=== PATIENT | female | born 1970 | race African-American/Black ===

== ENCOUNTER 2017-03-05 04:09 | Emergency (ER) | payer SELFPAY ==
[~2017-03-05] VITALS: Ht 144.8 cm; Wt 62.0 kg
[2017-03-05 04:10] VITALS: BP 158/105; PULSE 112; RESP 16; TEMP 98.7; O2SAT 96
[2017-03-05] MEDS ORDERED: diphenhydrAMINE HCL 50 MG/ML VIAL IM ONE (04:45)
--- NOTE | 2017-03-05 04:49 | PD ---
HPI Chief Complaint: Bite or Sting Time Seen by Provider: 04:44 Travel History International Travel<30 days: No Contact w/Intl Traveler<30days: No Traveled to known affect area: No History of Present Illness HPI 47 year old female presents for evaluation of pruritus and bedbugs. Symptom onset 2 weeks ago. She had a vvtuziyym-fyzh-ciz to her house he found bedbugs and he reportedly exterminated them however she's had persistent pruritus and tonight she found another bedbug. She reports that her fianc has had similar symptoms. The pruritus is found throughout most of her body however she has only noticed a few skin bumps on her forearms. She has not used any over-the- counter medications for symptom relief. No other complaints. PFSH Past Medical History Medical History: Denies Significant Hx Diminished Hearing: No Tetanus Vaccination: > 5 Years Influenza Vaccination: No ?: Not LMP: 02/19/17 : 3 Para: 0 Miscarriage: 2 Ectopic : Yes (one) Tubal Ligation: Yes Past Surgical History Surgical History: No Previous Surgery Abdominal Surgery: Yes (ectopic preg.2000) Section: Yes Social History Alcohol Use: Yes (3 beers per week) Tobacco Use: Yes (4 per week) Substance Use: No Allergies-Medications (Allergen,Severity, Reaction): Coded Allergies: No Known Allergies (Verified , 03/05/17) Reported Meds & Prescriptions Reported Meds & Active Scripts Active No Active Prescriptions or Reported Medications Review of Systems Except as stated in HPI: all other systems reviewed are Neg Physical Exam Narrative GENERAL: Well-nourished female in no acute distress SKIN: Warm and dry. A few small papular lesions are noted on the left and right arm. No vesicles, no generalized rash, no morbilliform rash, no wheals, no petechiae or purpura. HEAD: Atraumatic. Normocephalic. EYES: Pupils equal and round. No scleral icterus. No injection or drainage. ENT: No nasal bleeding or discharge. Mucous membranes pink and moist. NECK: Trachea midline. No JVD. CARDIOVASCULAR: Regular rate and rhythm. No murmur appreciated. RESPIRATORY: No accessory muscle use. Clear to auscultation. Breath sounds equal bilaterally. GASTROINTESTINAL: Abdomen soft, non-tender, nondistended. Hepatic and splenic margins not palpable. Data Data Last Documented VS Vital Signs Date Time Temp Pulse Resp B/P (MAP) Pulse Ox O2 Delivery O2 Flow Rate FiO2 03/05/17 04:36 16 03/05/17 04:10 98.7 112 158/105 (122) 96 Room Air Orders Orders Diphenhydramine Inj (Benadryl Inj) (03/05/17 04:45) MDM Medical Decision Making Medical Screen Exam Complete: Yes Emergency Medical Condition: Yes Medical Record Reviewed: Yes Differential Diagnosis Bedbugs, elevated bilirubin, scabies, contact dermatitis Narrative Course The history is certainly consistent with bedbugs. She does not have a generalized rash to suggest scabies. The plan would be to have the master plumber return to her home and fumigate the home again because new bedbugs were reportedly discovered tonight. She is encouraged to use [id number] Benadryl for itching. She will be given a dose prior to discharge. Diagnosis Primary Impression: Bedbug bite Qualified Codes: W57.XXXA - Bitten or stung by nonvenomous insect and other nonvenomous arthropods, initial encounter Additional Instructions: Have the master plumber fumigate your home. Wash all bedding and clothing with warm water. Benadryl for itching. Return for any emergent medical conditions. Med/Other Pt SpecificInfo: No Change to Meds Scripts No Active Prescriptions or Reported Meds Disposition: 01 DISCHARGE HOME Condition: Stable Guerrero Kauffman Mar 05, 2017 04:49
== END 2017-03-05 04:55 | disposition home or self-care (01) ==
LOC: NEPB 04:09
DX: L29.9 Pruritus, unspecified (principal); Z72.0 Tobacco use; W57.XXXA Bitten or stung by nonvenomous insect and other nonvenomous arthropods, initial encounter
CPT/HCPCS: 96372; 99284; J1200